=== PATIENT | female | born 1950 | race Caucasian/White ===

== ENCOUNTER → 2016-08-18 | Outpatient (CLI) | payer MEDICAID | LOC: FIMAGING 14:38 | PROVIDERS: ATTEND Family Medicine | DX: Z12.31 Encounter for screening mammogram for malignant neoplasm of breast (principal) | CPT/HCPCS: G0202 ==

== ENCOUNTER 2017-02-08 06:53 | Day surgery (SDC) | payer MEDICAID ==
[2017-02-08] MEDS ORDERED: cefOXitin SODIUM 2 GM in D5W 100 ML IV ONE (07:00)
[2017-02-08] MEDS ORDERED: LIDOCAINE 1% 2 ML INJ ID PRN (07:01)
[2017-02-08] MEDS ORDERED: LR 1,000 ML IV ONE (07:01)
[2017-02-08] MEDS ORDERED: HEPARIN 1000 UNIT/1 ML MDV ONE (08:02)
[2017-02-08] MEDS ORDERED: ceFAZolin 1 GM/5 ML SYR ONE (08:02)
[2017-02-08] MEDS ORDERED: BUPIVACAINE/EPI 0.5% 30 ML SDV ONE (08:02)
[2017-02-08 08:03] LABS: ALBUMIN 4.4 g/dL (3.5-5.0); BILIRUBIN,TOTAL 0.3 mg/dL (0.1-1.4); BILIRUBIN-CONJUGATED 0.1 mg/dL (0.0-0.5); BILIRUBIN-UNCONJUGATED 0.2 mg/dL (0.0-1.1); TOTAL PROTEIN 6.9 g/dL (6.3-8.2)
[2017-02-08] MEDS ORDERED: BUPIVACAINE 0.5% 30 ML SDV ONE ×2 (08:03→08:49)
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
[2017-02-08] MEDS ORDERED: MIDAZOLAM 2 MG/2 ML VIAL IVP ONE (08:05)
[2017-02-08] MEDS ORDERED: fentaNYL 100 MCG/2 ML INJ ONE ×3 (08:12→09:51)
[2017-02-08] MEDS ORDERED: DEXAMETHASONE 4 MG/ML VIAL ONE (08:13)
[2017-02-08] MEDS ORDERED: ROCURONIUM 50 MG/5 ML VIAL ONE (08:13)
[2017-02-08] MEDS ORDERED: PROPOFOL 200 MG/20 ML VIAL ONE ×2 (08:13→08:47)
[2017-02-08] MEDS ORDERED: PHENYLEPHRINE HCL 100 MCG/ML SYR ONE (08:54)
[2017-02-08] MEDS ORDERED: ONDANSETRON 4 MG/2 ML VIAL ONE ×2 (08:58→09:31)
[2017-02-08] MEDS ORDERED: SUGAMMADEX SODIUM 200 MG/2 ML VIAL IVP ONE (09:11)
--- NOTE | 2017-02-08 09:18 | POSTOPPROG ---
Post Op Note Date of Operation: 02/08/17 Surgeon: Haroon Chambers Nursing Surgical Services Director: EDILSON Anesthesiologist: ARTURO Anesthesia: GET(General Endotracheal) Pre-op Diagnosis: CHOLELITHIASIS Post-op Diagnosis: SAME Indication: PAIN Procedure: LAP RIMA Findings: MULTIPLE STONES, SMALL DUCTS Inf/Abcess present in the surg proc area at time of surgery?: No Depth: Organ Space EBL: Minimal Complications: 0 Specimen(s): GALLBLADDER
--- NOTE | 2017-02-08 09:26 | POSTOPPROG ---
Post Op Note Date of Operation: 02/08/17 Surgeon: Haroon Chambers Child Development Professor: Deborah Pino Anesthesiologist: Quique Yates Anesthesia: GET(General Endotracheal) Pre-op Diagnosis: cholelithiasis, chronic cholecystitis Post-op Diagnosis: same Procedure: lap viviane Findings: stones, adhesions, slight thick gb wall, small ducts Inf/Abcess present in the surg proc area at time of surgery?: No EBL: Minimal Complications: none Specimen(s): gallbladder to pathology
[2017-02-08] MEDS ORDERED: HYDROCODONE/APAP 5/325 TAB PO PRN (09:28)
[2017-02-08] MEDS ORDERED: NALOXONE HCL 0.4 MG/ML INJ IVP PRN (09:28)
[2017-02-08] MEDS ORDERED: OXYCODONE/APAP 5/325 TAB PO PRN (09:28)
[2017-02-08] MEDS: fentaNYL 100 MCG/2 ML INJ IVP PRN ×3 (09:29→09:53)
[2017-02-08] MEDS ORDERED: PROMETHAZINE HCL 25 MG/ML INJ IVP PRN (09:35)
[2017-02-08] MEDS ORDERED: ONDANSETRON 4 MG/2 ML VIAL IVP PRN (09:35)
[2017-02-08] MEDS ORDERED: HYDROCODONE/APAP 5/325 TAB ONE (09:51)
--- NOTE | 2017-02-08 10:06 | POSTANESTH ---
Post Anesthetic Evaluation Cardiovascular Status: Normal, Stable Respiratory Status: Normal, Stable Level of Consciousness/Mental Status: Can Participate in Eval Pain Control: Adequate, Prn Tx Ordered Nausea/Vomiting Control: Adequate, Prn Tx Ordered Complications Possibly Related to Anesthesia: None Noted
[2017-02-08 10:26] VITALS: RESP 16
[2017-02-08 10:35] VITALS: PULSE 70; TEMP 97.9
[2017-02-08 11:19] VITALS: BP 122/58
[2017-02-08 11:20] VITALS: O2SAT 98
--- NOTE | 2017-02-08 13:50 | GOP ---
[f rep st] OPERATIVE REPORT DATE OF OPERATION: SURGEON: Haroon Chambers MD [place] TIER: HANNAH Moreno ANESTHESIOLOGIST: Dr. Yates. PREOPERATIVE DIAGNOSIS: Symptomatic cholelithiasis and cholecystitis. POSTOPERATIVE DIAGNOSIS: Symptomatic cholelithiasis and cholecystitis. PROCEDURE PERFORMED: Laparoscopic cholecystectomy. FINDINGS: Patient was found to have multiple large stones with distended gallbladder, ducts were sma ll. ESTIMATED BLOOD LOSS: Negligible. DESCRIPTION OF PROCEDURE: The patient was taken to the operating room, where she received satisfacto ry general endotracheal anesthesia by Dr. Yates. She was placed in supine position, prepped and drap ed in the usual sterile fashion. A periumbilical incision was made, a Veress needle inserted, pneumo peritoneum was established. Trocar was introduced. Laparoscope introduced. Good visualization was obtained. Three other trocars were placed in the upper abdomen under direct vision. The gallbladder was elevated up, adhesions were taken down, exposing the entire gallbladder. The cystic triangle wa s then carefully dissected free. Cystic duct and cystic artery were isolated. A good critical view was obtained. The gallbladder was freed up from the edge of the hepatic fossa. Ducts and arteries w ere multiply hemoclipped and divided. The peritoneum of the gallbladder was incised. The gallbladde r was dissected free from the bed of the hepatic fossa, and extracted through the upper midline port site. Wound was irrigated. Hemostasis was assured. Trocars removed under direct vision. Trocar si sangita were closed with 0 Vicryl for the fascia, 4-0 Vicryl subcuticular stitch for the skin. All layer s infiltrated with 0.5% Marcaine COMPLICATIONS: None. DISPOSITION: Taken to recovery room in good condition. /[id number]/MODL
== END 2017-02-08 11:27 | disposition home or self-care (01) ==
LOC: FSGY 06:53
PROVIDERS: ATTEND Surgery
PROC: 0FT44ZZ Resection of Gallbladder, Percutaneous Endoscopic Approach (ICD-10-PCS; principal; 2017-02-08 08:15)
DX: K80.10 Calculus of gallbladder with chronic cholecystitis without obstruction (principal); E03.9 Hypothyroidism, unspecified
CPT/HCPCS: J0694; J1100; J2250; J2370; J2405; J2704; J3010

== ENCOUNTER → 2018-04-01 | Outpatient (CLI) | payer OTHER | LOC: FIMAGING 13:07 | PROVIDERS: ATTEND Family Medicine | DX: Z12.31 Encounter for screening mammogram for malignant neoplasm of breast (principal) ==